=== PATIENT | female | born 1965 | race Two or more races ===

== ENCOUNTER 2020-04-01 10:29 | Emergency (ER) | payer MEDICAID, OTHER ==
[~2020-04-01] VITALS: Ht 152.4 cm; Wt 61.2 kg
[2020-04-01 10:30] VITALS: BP 138/75
[2020-04-01] MEDS ORDERED: methylPREDNISolone SOD SUCC 125 MG/2 ML VL IM ONE (11:45)
[2020-04-01] MEDS ORDERED: EPINEPHrine HCL 1 MG/1 ML AMP SC ONE (11:45)
== END 2020-04-01 12:28 | disposition home or self-care (01) ==
LOC: ER 10:29
DX: T78.40XA Allergy, unspecified, initial encounter (principal); X58.XXXA Exposure to other specified factors, initial encounter
CPT/HCPCS: 96372; 99284; J0171; J2930